=== PATIENT | male | born 1970 | race African-American/Black ===

== ENCOUNTER 2024-09-28 18:21 | Inpatient (IN) | payer OTHER ==
[2024-09-28] MEDS ORDERED: Diazepam 10 MG/2 ML SYRINGE ONE (18:51)
[2024-09-28 18:56] LABS: #Basophils Less than 0.03 10x3/uL (0.0-0.2); %Basophils 0.3 % (0.0-1.0); %Eosinophils 0.6 % (0.0-10.0); %Lymphocytes 17.1 % (21.0-51.0); %Monocytes 9.4 % (0.0-10.0); %Neutrophils 72.3 % (42.0-75.0); Hematocrit 42.9 % (42.0-52.0); Hemoglobin 14.7 g/dL (14.0-18.0); Mean Corpuscular HGB CONC 34.3 g/dL (32.0-36.0); Mean Corpuscular Hemoglobin 29.4 pg (27.0-31.0); Mean Corpuscular Volume 85.8 fL (78.0-98.0); Mean Platelet Volume 10.1 fL (7.4-10.4); Platelet Count 241 10x3/uL (130-400); RBC Distribution Width 13.3 % (11.5-14.5)
[2024-09-28 19:03] LABS: Actual Bicarbonate (HCO3v) 21.9 mEq/L (22-28); Base Excess -2.7 mEq/L (-2.0 to +3.0); Calcium, Ionized (venous) 1.08 mmol/L (1.16-1.32); Chloride (VBG) 102 mmol/L (98-106); Hematocrit-VBG 46 % (42.0-52.0); Hemoglobin (Hb) 15.7 g/dL (13.1-17.2); Potassium (VBG) 3.66 mmol/L (3.70-5.30); Sodium 138 mmol/L (133-146); pH (venous) 7.381 (7.32-7.43)
[2024-09-28 19:11] LABS: Acetaminophen Less than 10 mcg/mL (Less than 10); Alcohol Less than 10.0 mg/dL (Less than 10); Salicylate Less than 8.0 mg/dL (Less than 8.0)
[2024-09-28 19:12] LABS: ALT (SGPT) 27 U/L (8-55); AST (SGOT) 34 U/L (5-34); Albumin 3.6 g/dL (3.5-5.0); Alkaline Phosphatase 46 U/L (40-110); Anion Gap 12 mmol/L (10-20); BUN (Urea Nitrogen) 13 mg/dL (8.4-25.7); Bilirubin, Total 0.2 mg/dL (0.2-1.2); CK (CPK) 405 U/L (30-200); Calc. Creatinine Clearance 0 mL/min (70-130); Calcium 8.2 mg/dL (7.8-10.44); Carbon Dioxide 21 mmol/L (22-29); Chloride 106 mmol/L (98-107); Estimated GFR 105; Globulin 4.4 g/dL (2.4-3.5); Glucose 108 mg/dL (70-105); Potassium 3.6 mmol/L (3.5-5.1); Sodium 135 mmol/L (136-145)
[2024-09-28 19:16] LABS: Troponin I Less than 0.010 ng/mL (< 0.028)
[2024-09-28 19:58] LABS: Bacteria/HPF None Seen HPF (None Seen); Bilirubin Negative (Negative); Blood, Urine Negative (Negative); CAUTI Indications for Culture Alt mental st,lethar; Clarity Clear (Clear); Glucose, Urine (Dipstick) Normal (Negative); Ketone, Urine Negative (Negative); Leukocyte Negative Leu/uL (Negative); Nitrite Negative (Negative); Protein, Urine (Dipstick) 30 mg/dL (Neg-Trace); RBC/HPF 0-3 HPF (0-3); Specific Gravity, Urine 1.021 (1.002-1.036); Squamous Epithelial 0-3 HPF (0-3); Urobilinogen Normal mg/dL (Less than 2); WBC/HPF 0-3 HPF (0-3)
[2024-09-28 19:59] LABS: Sperm/HPF 1+ HPF (None Seen)
[2024-09-28 20:00] LABS: Urine Culture Reflex No No
[2024-09-28 20:04] LABS: Amphetamine Not Detected (NotDetected); Barbiturates Screen Not Detected (NotDetected); Benzodiazepine Screen Not Detected (NotDetected); Cocaine Metabolite Screen Not Detected (NotDetected); Methadone Not Detected (NotDetected); Methamphetamine Not Detected (NotDetected); Opiate Screen Not Detected (NotDetected); Oxycodone Screen Not Detected (NotDetected); Phencyclidine (PCP) Not Detected (NotDetected); THC/Cannabinoid Screen Not Detected (NotDetected); Tricyclic Screen Not Detected (NotDetected)
[2024-09-28] MEDS ORDERED: Senokot S 8.6-50 MG TAB PO PRN (22:14)
[2024-09-28] MEDS ORDERED: Acetaminophen 325 MG TAB PO PRN (22:14)
[2024-09-29] MEDS: Sodium Chloride 0.9% 1,000 ML IV SCH (01:05)
[2024-09-29 01:14] VITALS: BMI 31.9
[2024-09-29] MEDS ORDERED: Diazepam 10 MG/2 ML SYRINGE IVP PRN (01:16)
[2024-09-29] MEDS ORDERED: Ondansetron ODT 4 MG TAB SL PRN (01:30)
[2024-09-29] MEDS ORDERED: Ondansetron PF 4 MG/2 ML Vial IVP PRN (01:30)
[2024-09-29] MEDS: Lorazepam 2 MG/ML VIAL SLOW IVP PRN (04:42)
[2024-09-29 05:44] LABS: ALT (SGPT) 21 U/L (8-55); AST (SGOT) 27 U/L (5-34); Albumin 3.2 g/dL (3.5-5.0); Alkaline Phosphatase 40 U/L (40-110); Anion Gap 10 mmol/L (10-20); BUN (Urea Nitrogen) 9 mg/dL (8.4-25.7); Bilirubin, Total 0.2 mg/dL (0.2-1.2); Calc. Creatinine Clearance 143 mL/min (70-130); Calcium 8.2 mg/dL (7.8-10.44); Carbon Dioxide 21 mmol/L (22-29); Chloride 108 mmol/L (98-107); Estimated GFR 107; Globulin 3.7 g/dL (2.4-3.5); Glucose 109 mg/dL (70-105); Potassium 3.4 mmol/L (3.5-5.1); Protein, Total 6.9 g/dL (6.0-8.3); Sodium 136 mmol/L (136-145)
[2024-09-29] MEDS: Enoxaparin 40 MG (0.4 mL) SYRINGE SC SCH (09:30)
[2024-09-29] MEDS: Potassium Chloride 20 MEQ TAB PO SCH (09:31)
[2024-09-29] MEDS: Amlodipine 10 MG TAB PO SCH (12:56)
[2024-09-29 12:58] VITALS: BP 164/110
[2024-09-29] MEDS: Ziprasidone 20 MG CAP PO SCH (19:56)
[2024-09-30 03:52] VITALS: TEMP 97.3
[2024-09-30 04:05] LABS: #Basophils 0.03 10x3/uL (0.0-0.2); %Basophils 0.7 % (0.0-1.0); %Lymphocytes 45.6 % (21.0-51.0); %Monocytes 15.6 % (0.0-10.0); %Neutrophils 33.9 % (42.0-75.0); Hematocrit 45.2 % (42.0-52.0); Hemoglobin 14.8 g/dL (14.0-18.0); Mean Corpuscular HGB CONC 32.7 g/dL (32.0-36.0); Mean Corpuscular Volume 88.5 fL (78.0-98.0); Platelet Count 230 10x3/uL (130-400); RBC Distribution Width 13.7 % (11.5-14.5); Red Blood Cell (RBC) Count 5.11 mill/uL (4.70-6.10)
[2024-09-30 04:36] LABS: Anion Gap 12 mmol/L (10-20); BUN (Urea Nitrogen) 10 mg/dL (8.4-25.7); CK (CPK) 413 U/L (30-200); Calc. Creatinine Clearance 134 mL/min (70-130); Calcium 9.2 mg/dL (7.8-10.44); Carbon Dioxide 22 mmol/L (22-29); Chloride 107 mmol/L (98-107); Estimated GFR 105; Glucose 70 mg/dL (70-105); Potassium 4.3 mmol/L (3.5-5.1); Sodium 137 mmol/L (136-145)
[2024-09-30] MEDS ORDERED: Ziprasidone 20 MG CAP PO SCH ×2 (09:00→19:00)
[2024-09-30] MEDS ORDERED: Amlodipine 10 MG TAB PO SCH (09:00)
[2024-09-30] MEDS: Amlodipine 10 MG TAB PO SCH (09:04)
== END 2024-09-30 18:05 | DRG 918 ==
LOC: EEVIPCON 18:21 → ERS 18:21 → ERHOLD 22:25 → IMCU/EMU 09-29 01:02
PROVIDERS: ADMIT Student in an Organized Health Care Education/Training Program; ATTEND Hospitalist
DX: T43.212A Poisoning by selective serotonin and norepinephrine reuptake inhibitors, intentional self-harm, initial encounter (principal); G90.81 Serotonin syndrome; I10 Essential (primary) hypertension; E87.6 Hypokalemia; T43.222A Poisoning by selective serotonin reuptake inhibitors, intentional self-harm, initial encounter; Y92.89 Other specified places as the place of occurrence of the external cause; Z87.891 Personal history of nicotine dependence; Z90.49 Acquired absence of other specified parts of digestive tract
CPT/HCPCS: 36415; 80048; 80053; 80306; 80307; 81001; 82550; 82805; 83605; 84443; 84484; 85025; 93005; 93010; 96374; J1650; J2060; J3360; J7030